=== PATIENT | male | born 1990 | race African-American/Black ===

== ENCOUNTER 2023-07-21 00:15 | Emergency (ER) | payer SELFPAY ==
[2023-07-21 00:22] VITALS: BMI 26.5
[2023-07-21] MEDS ORDERED: ACETAMINOPHEN 325 MG TABLET (FP) ONE (00:41)
[2023-07-21] MEDS: ACETAMINOPHEN 500 MG TABLET (FP) PO ONE (00:46)
[2023-07-21] MEDS: IBUPROFEN 400 MG TABLET (FP) PO ONE (00:54)
[2023-07-21 01:43] VITALS: BP 115/68; PULSE 83; RESP 16; TEMP 98.5
== END 2023-07-21 03:23 | disposition home or self-care (01) ==
LOC: JER 00:15
DX: R05.9 Cough, unspecified (principal); R50.9 Fever, unspecified; M79.10 Myalgia, unspecified site; R09.81 Nasal congestion; M54.50 Low back pain, unspecified; R07.0 Pain in throat; J06.9 Acute upper respiratory infection, unspecified; B97.89 Other viral agents as the cause of diseases classified elsewhere; Z20.822 Contact with and (suspected) exposure to COVID-19
CPT/HCPCS: 0241U-QW; 99283-25